=== PATIENT | female | born 1980 | race Caucasian/White ===

== ENCOUNTER 2025-02-14 15:36 | Emergency (ER) | payer SELFPAY ==
[2025-02-14 15:39] VITALS: BP 127/82; PULSE 122; TEMP 36.7; O2SAT 98; BMI 36.6
--- NOTE | 2025-02-14 15:57 | ED_ITS ---
Documented by User: Grabiel Avelar DO 02/15/25 08:55 HPI - General Adult 2 General: Chief complaint: General Medical Stated complaint: swelling all over Time Seen by Provider: 02/14/25 15:53 History of Present Illness: 44-year-old female presents emergency ro om complaining of hands and feet swelling over the last several days to a week. It is getting particularly worse the last 2 days she has bit of a sore throat complaining of difficulty moving her hands because of the swelling. She has a fair amount of arthritic complaints and takes NSAIDs regularly. No chest pain no shortness of breath at this time. Associated symptoms: Deny chest pain, dyspnea or rash Related Data Allergies Allergy/AdvReac Type Severity Reaction Status Date / Time No Known Allergies Allergy Verified 02/14/25 15:43 Review of Systems 2 Const: Denies: fever(s) or chills Card: Denies: chest pain Resp: Denies: dyspnea GI: Denies: abdominal pain : Denies: dysuria, urinary frequency or urinary urgency Musc: Denies: neck pain or back pain Skin/Breast: Denies: rash Physical Exam 2 Const: GENERAL APPEARANCE: cooperative ORIENTATION/CONSCIOUSNESS: Yes awake, Yes oriented to person, Yes oriented to place and Yes oriented to time HENMT: COMMON NORMALS: normocephalic, atraumatic and hearing grossly normal bilaterally HEAD & SCALP: normocephalic and atraumatic Resp: COMMON NORMALS: normal respiratory effort, No retractions, No use of accessory muscles and clear to auscultation bilaterally AUSCULTATION: clear to auscultation bilaterally Cardio: COMMON NORMALS: regular rate, regular rhythm and No murmurs present (Cardio) RATE: regular rate RHYTHM: regular rhythm GI: COMMON NORMALS: Soft to palpation and No hepatosplenomegaly present A USCULTATION: Yes normoactive bowel sounds PALPATION: Yes Soft to palpation, No Tenderness to palpation present (GI), No Guarding due to palpation present (GI) and Yes No hepatosplenomegaly present Extremity: COMMON NORMALS: normal to inspection, capillary refill normal, no clubbing, cyanosis or edema, no calf tenderness and no pedal edema Neuro: SENSORIUM/ORIENTATION: Yes oriented to person, Yes oriented to place and Yes oriented to time Skin: COMMON NORMALS: no rashes or lesions noted GENERAL SKIN EXAM: no rashes or lesions noted Course 2 Vital Signs: Vital signs: Vital Signs Temperature 98.0 F 02/14/25 15:39 Pulse Rate 104 H 02/14/25 19:42 Respiratory Rate 16 02/14/25 19:42 Blood Pressure 130/90 02/14/25 19:42 Pulse Oximetry 100 02/14/25 19:42 Oxygen Delivery Me thod Room Air 02/14/25 18:00 MDM - General Adult Medical Decision Making Care signed out to Dr. Olivera at change of shift. See final notes for diagnosis and disposition. Patient signed out to me by previous emergency physician pending labs. When I speak with her, she is most concerned that her swelling might be due to congestive heart failure as she has a friend who is suffering from the same etiology. I do not suspect this is the case that she has no orthopnea or dyspnea on exertion. She has mild swelling of the bilateral hands and feet and left knee though she states she has chronic knee pain and has been told she needs to have that knee replaced by an orthopedic surgeon. She also admits to using a glass washer all day and she thinks that may be the hand swelling and pain could be from that. Regardless, I do not suspect infectious etiology to the swelling or any other emergent process warranting further workup. She will be discharged home in stable condition and will use [id number] medications for pain and she will follow-up with orthopedics to see whether her knee truly requires replacement in the near future. Lab Data 02/14/25 17:36 02/14/25 17:36 Radiology Impressions Chest X-Ray 02/14/25 17:11 IMPRESSION: No acute cardiopulmonary process. Laboratory Results WBC 11.93 10^3/uL (3.29-11.43) H 02/14/25 17:36 RBC 4.18 10^6/uL (3.85-5.65) 02/14/25 17:36 Hgb 10.70 g/dL (11.27-16.99) L 02/14/25 17:36 Hct 34.8 % (36-47) L 02/14/25 17:36 MCV 83.3 fl (85-98) L 02/14/25 17:36 MCH 25.6 pg (27-33) L 02/14/25 17:36 MCHC 30.7 g/dL (30-55) 02/14/25 17:36 RDW 17.2 % (12.1-15.1) H 02/14/25 17:36 Plt Count 484 10^3/cmm (157-399) H 02/14/25 17:36 MPV 10.7 fL (7.4-10.4) H 02/14/25 17:36 Neut % (Auto) 74.2 % 02/14/25 17:36 Lymph % (Auto) 14.9 % 02/14/25 17:36 Ramsey % (Auto) 7.0 % 02/14/25 17:36 Eos % (Auto) 2.8 % 02/14/25 17:36 Baso % (Auto) 0.8 % 02/14/25 17:36 Neut # (Auto) 8.84 10^3/uL (1.8-7.7) H 02/14/25 17:36 Lymph # (Auto) 1.8 10^3/uL (0.8-4.8) 02/14/25 17:36 Ramsey # (Auto) 0.8 10^3/uL (0.2-0.9) 02/14/25 17:36 Eos # (Auto) 0.3 10^3/uL (0.0-0.8) 02/14/25 17:36 Baso # (Auto) 0.1 10^3/uL (0.0-0.1) 02/14/25 17:36 Nucleated RBC % (auto) 0 % 02/14/25 17:36 Nucleated RBCs # 0.0 /100WBC 02/14/25 17:36 Sodium 133 mmol/L (136-145) L 02/14/25 17:36 Potassium 3.6 mmol/L (3.5-5.1) 02/14/25 17:36 Chloride 95 mmol/L (98-107) L 02/14/25 17:36 Carbon Dioxide 24 mmol/L (22-29) 02/14/25 17:36 Anion Gap 17.6 (5-19) 02/14/25 17:36 BUN 9 mg/dL (6-20) 02/14/25 17:36 Creatinine 0.7 mg/dL (0.5-0.9) 02/14/25 17:36 GFR Calculation 90.5 mL/min (90-130) 02/14/25 17:36 Glucose 105 mg/dL (65-115) 02/14/25 17:36 Calculated Osmolality 275 mOsm/kg (285-295) L 02/14/25 17:36 Calcium 9.1 mg/dL (8.5-10.5) 02/14/25 17:36 Total Bilirubin 0.2 mg/dL (0.15-1.2) 02/14/25 17:36 AST 17 U/L (0-32) 02/14/25 17:36 ALT 18 U/L (0-33) 02/14/25 17:36 Alkaline Phosphatase 116 U/L (35-105) H 02/14/25 17:36 NT-Pro-B Natriuret Pep < 36 pg/mL (0-125) 02/14/25 17:36 Total Protein 8.2 g/dL (6.6-8.7) 02/14/25 17:36 Albumin 4.0 g/dL (3.5-5.2) 02/14/25 17:36 Globulin 4.2 g/dL (1.3-4.6) 02/14/25 17:36 Urine Color Yellow (Yellow) 02/14/25 18: Urine Appearance Clear (CLEAR) 02/14/25 18: Urine pH 5.5 (5-7) 02/14/25 18:29 Ur Specific Mcdermott 1.010 (1.005-1.030) 02/14/25 18:29 Urine Protein Negative (Negative) 02/14/25 18: Urine Glucose (UA) Negative (Normal) 02/14/25 18: Urine Ketones Negative (Negative) 02/14/25 18: Urine Blood Negative (Negative) 02/14/25 18:29 Urine Nitrate Negative (Negative) 02/14/25 18: Urine Bilirubin Negative (Negative) 02/14/25 18: Urine Urobilinogen 1.0 mg/dL (Negative) 02/14/25 18:29 Ur Leukocyte Esterase Negative (Negative) 02/14/25 18:29 Urine RBC 0-2 /hpf (0-2) 02/14/25 18:29 Urine WBC 0-5 /hpf (0-5) 02/14/25 18:29 Ur Squamous Epith Cells 0-5 /hpf (0-5) 02/14/25 18:29 Amorphous Sediment Not Reportable 02/14/25 18:29 Urine Bacteria Trace /hpf (NONE) 02/14/25 18:29 Hyaline Casts 0.40 /lpf 02/14/25 18:29 Group A Strep Rapid Negative (Negative) 02/14/25 17:22 Discharge Plan Discharge Patient Disposition: Home Clinical Impression: Joint ache, Acute sore throat Condition: Stable Discharge Orders: Discharge ED (Routine); Ordered 02/14/25 Ordered By: Aubrey Olivera Discharge Diet: Advance as tolerated Discharge Activity: Increase activity as tolerated Patient Instructions: Pharyngitis (ED) Activity Restrictions/Additional Instructions: As we discussed, it appears you are suffering from a viral illness causing sore throat and aches of various joints. This should all get better with time without need for any specific invention. Please take ibuprofen and Tylenol and stay well-hydrated. You do not appear to have congestive heart failure causing your swelling. Print Language: Citizen [place] Sign Out Sign Out Data: Patient Sign Out occurred on 02/14/25 at 19:29. Patient's care was discussed, and care was transferred from Grabiel Avelar DO to Aubrey Olivera MD. Coding Level of Care Code ED Microfiche Camera Operator for Chg Fwd Documented by User: Aubrey Olivera MD 02/15/25 07:14 HPI - General Adult 2 General: Chief complaint: General Medical Stated complaint: swelling all over Time Seen by Provider: 02/14/25 15:53 Related Data Allergies Allergy/AdvReac Type Severity Reaction Status Date / Time No Known Allergies Allergy Verified 02/14/25 15:43 Course 2 Vital Signs: Vital signs: Vital Signs Temperature 98.0 F 02/14/25 15:39 Pulse Rate 104 H 02/14/25 19:42 Respiratory Rate 16 02/14/25 19:42 Blood Pressure 130/90 02/14/25 19:42 Pulse Oximetry 100 02/14/25 19:42 Oxygen Delivery Me thod Room Air 02/14/25 18:00 MDM - General Adult Medical Decision Making Patient signed out to me by previous emergency physician pending labs. When I speak with her, she is most concerned that her swelling might be due to congestive heart failure as she has a friend who is suffering from the same etiology. I do not suspect this is the case that she has no orthopnea or dyspnea on exertion. She has mild swelling of the bilateral hands and feet and left knee though she states she has chronic knee pain and has been told she needs to have that knee replaced by an orthopedic surgeon. She also admits to using a glass washer all day and she thinks that may be the hand swelling and pain could be from that. Regardless, I do not suspect infectious etiology to the swelling or any other emergent process warranting further workup. She will be discharged home in stable condition and will use [id number] medications for pain and she will follow-up with orthopedics to see whether her knee truly requires replacement in the near future. Lab Data 02/14/25 17:36 02/14/25 17:36 Radiology Impressions Chest X-Ray 02/14/25 17:11 IMPRESSION: No acute cardiopulmonary process. Laboratory Results WBC 11.93 10^3/uL (3.29-11.43) H 02/14/25 17:36 RBC 4.18 10^6/uL (3.85-5.65) 02/14/25 17:36 Hgb 10.70 g/dL (11.27-16.99) L 02/14/25 17:36 Hct 34.8 % (36-47) L 02/14/25 17:36 MCV 83.3 fl (85-98) L 02/14/25 17:36 MCH 25.6 pg (27-33) L 02/14/25 17:36 MCHC 30.7 g/dL (30-55) 02/14/25 17:36 RDW 17.2 % (12.1-15.1) H 02/14/25 17:36 Plt Count 484 10^3/cmm (157-399) H 02/14/25 17:36 MPV 10.7 fL (7.4-10.4) H 02/14/25 17:36 Neut % (Auto) 74.2 % 02/14/25 17:36 Lymph % (Auto) 14.9 % 02/14/25 17:36 Ramsey % (Auto) 7.0 % 02/14/25 17:36 Eos % (Auto) 2.8 % 02/14/25 17:36 Baso % (Auto) 0.8 % 02/14/25 17:36 Neut # (Auto) 8.84 10^3/uL (1.8-7.7) H 02/14/25 17:36 Lymph # (Auto) 1.8 10^3/uL (0.8-4.8) 02/14/25 17:36 Ramsey # (Auto) 0.8 10^3/uL (0.2-0.9) 02/14/25 17:36 Eos # (Auto) 0.3 10^3/uL (0.0-0.8) 02/14/25 17:36 Baso # (Auto) 0.1 10^3/uL (0.0-0.1) 02/14/25 17:36 Nucleated RBC % (auto) 0 % 02/14/25 17:36 Nucleated RBCs # 0.0 /100WBC 02/14/25 17:36 Sodium 133 mmol/L (136-145) L 02/14/25 17:36 Potassium 3.6 mmol/L (3.5-5.1) 02/14/25 17:36 Chloride 95 mmol/L (98-107) L 02/14/25 17:36 Carbon Dioxide 24 mmol/L (22-29) 02/14/25 17:36 Anion Gap 17.6 (5-19) 02/14/25 17:36 BUN 9 mg/dL (6-20) 02/14/25 17:36 Creatinine 0.7 mg/dL (0.5-0.9) 02/14/25 17:36 GFR Calculation 90.5 mL/min (90-130) 02/14/25 17:36 Glucose 105 mg/dL (65-115) 02/14/25 17:36 Calculated Osmolality 275 mOsm/kg (285-295) L 02/14/25 17:36 Calcium 9.1 mg/dL (8.5-10.5) 02/14/25 17:36 Total Bilirubin 0.2 mg/dL (0.15-1.2) 02/14/25 17:36 AST 17 U/L (0-32) 02/14/25 17:36 ALT 18 U/L (0-33) 02/14/25 17:36 Alkaline Phosphatase 116 U/L (35-105) H 02/14/25 17:36 NT-Pro-B Natriuret Pep < 36 pg/mL (0-125) 02/14/25 17:36 Total Protein 8.2 g/dL (6.6-8.7) 02/14/25 17:36 Albumin 4.0 g/dL (3.5-5.2) 02/14/25 17:36 Globulin 4.2 g/dL (1.3-4.6) 02/14/25 17:36 Urine Color Yellow (Yellow) 02/14/25 18:29 Urine Appearance Clear (CLEAR) 02/14/25 18: Urine pH 5.5 (5-7) 02/14/25 18:29 Ur Specific Mcdermott 1.010 (1.005-1.030) 02/14/25 18:29 Urine Protein Negative (Negative) 02/14/25 18:29 Urine Glucose (UA) Negative (Normal) 02/14/25 18:29 Urine Ketones Negative (Negative) 02/14/25 18: Urine Blood Negative (Negative) 02/14/25 18: Urine Nitrate Negative (Negative) 02/14/25 18: Urine Bilirubin Negative (Negative) 02/14/25 18: Urine Urobilinogen 1.0 mg/dL (Negative) 02/14/25 18: Ur Leukocyte Esterase Negative (Negative) 02/14/25 18:29 Urine RBC 0-2 /hpf (0-2) 02/14/25 18:29 Urine WBC 0-5 /hpf (0-5) 02/14/25 18:29 Ur Squamous Epith Cells 0-5 /hpf (0-5) 02/14/25 18: Amorphous Sediment Not Reportable 02/14/25 18:29 Urine Bacteria Trace /hpf (NONE) 02/14/25 18: Hyaline Casts 0.40 /lpf 02/14/25 18:29 Group A Strep Rapid Negative (Negative) 02/14/25 17:22 All radiology interpretation(s) finalized by discharge Discharge Plan Discharge Patient Disposition: Home Clinical Impression: Joint ache, Acute sore throat Condition: Stable Discharge Orders: Discharge ED (Routine); Ordered 02/14/25 Ordered By: Aubrey Olivera Discharge Diet: Advance as tolerated Discharge Activity: Increase activity as tolerated Patient Instructions: Pharyngitis (ED) Activity Restrictions/Additional Instructions: As we discussed, it appears you are suffering from a viral illness causing sore throat and aches of various joints. This should all get better with time without need for any specific invention. Please take ibuprofen and Tylenol and stay well-hydrated. You do not appear to have congestive heart failure causing your swelling. Print Language: Citizen [place] Sign Out Sign Out Data: Patient Sign Out occurred on 02/14/25 at 19:29. Patient's care was discussed, and care was transferred from Grabiel Avelar DO to Aubrey Olivera MD. Coding Level of Care Code ED Microfiche Camera Operator for Arya Nagel
--- NOTE | 2025-02-14 17:11 | ECG_ITS ---
[facility]25[facility]14 Pat Name: Doris De La Cruz Department: Room: Gender: Female Director Of Trauma: : 1980 Requested By: Grabiel Wang Order Number: [id number] Reading MD: SUMI FLOR Measurements Intervals [place] Rate: 97 P: 61 UT: 161 QRS: 10 QRSD: 96 T: 44 QT: 354 QTc: 451 Interpretive Statements SINUS RHYTHM No previous ECG available for comparison Electronically Signed On 02-15-2025 22:49:15 CDT by SUMI FLOR [email or web address]
--- NOTE | 2025-02-14 17:11 | XRR_ITS ---
PROCEDURE INFORMATION: Exam: XR Chest Exam date and time: 02/14/2025 5:14 PM Age: 44 years old Clinical indication: Cough and dyspnea; Additional info: Dyspnea/cough TECHNIQUE: Imaging protocol: Radiologic exam of the chest. Views: 1 view. COMPARISON: No relevant prior studies available. FINDINGS: Lungs: Low lung volumes. Mild bibasilar opacities favor atelectasis. No focal consolidation. Pleural spaces: Unremarkable. No pleural effusion. No pneumothorax. Heart/Mediastinum: Unremarkable. No cardiomegaly. Bones/joints: Unremarkable. XR/XR chest 1V portable [id number] IMPRESSION: No acute cardiopulmonary process.
[2025-02-14 17:51] LABS: Basophils # 0.1 10^3/uL (0.0-0.1); Basophils % 0.8 %; Eosinophils # 0.3 10^3/uL (0.0-0.8); Eosinophils % 2.8 %; Hematocrit 34.8 % (36-47); Lymphocytes # 1.8 10^3/uL (0.8-4.8); Lymphocytes % 14.9 %; Mean Corpuscular HGB Conc 30.7 g/dL (30-55); Mean Corpuscular Hemoglobin 25.6 pg (27-33); Mean Corpuscular Volume 83.3 fl (85-98); Mean Platelet Volume 10.7 fL (7.4-10.4); Monocytes # 0.8 10^3/uL (0.2-0.9); Neutrophils # 8.84 10^3/uL (1.8-7.7); Neutrophils % 74.2 %; Nucleated Red Blood Cells % 0 %; Platelet Count 484 10^3/cmm (157-399); Red Blood Count 4.18 10^6/uL (3.85-5.65); Red Cell Distribution Width 17.2 % (12.1-15.1); White Blood Count 11.93 10^3/uL (3.29-11.43)
[2025-02-14 18:00] VITALS: BP 138/97; PULSE 104; O2SAT 97
[2025-02-14 18:00] LABS: Rapid Strep A Test Negative (Negative)
[2025-02-14 18:46] LABS: Alanine Aminotransferase 18 U/L (0-33); Alkaline Phosphatase 116 U/L (35-105); Aspartate Amino Transferase 17 U/L (0-32); Blood Urea Nitrogen 9 mg/dL (6-20); Calcium 9.1 mg/dL (8.5-10.5); Carbon Dioxide 24 mmol/L (22-29); Chloride 95 mmol/L (98-107); Creatinine Clr Calc Pharmacy 118.7474; Globulin 4.2 g/dL (1.3-4.6); Glomerular Filtration Rate 90.5 mL/min (90-130); Glucose 105 mg/dL (65-115); NT Pro B Type Natriuretic Pept < 36 pg/mL (0-125); Osmolality Calculated 275 mOsm/kg (285-295); Sodium 133 mmol/L (136-145); Total Bilirubin 0.2 mg/dL (0.15-1.2); Total Protein 8.2 g/dL (6.6-8.7)
[2025-02-14 18:49] LABS: Anion Gap 17.6 (5-19); Potassium 3.6 mmol/L (3.5-5.1)
[2025-02-14 18:50] LABS: Bilirubin Urine Negative (Negative); Blood Urine Negative (Negative); Glucose Urine UA Negative (Normal); Ketones Urine Negative (Negative); Leukocyte Esterase Urine Negative (Negative); Nitrate Urine Negative (Negative); Protein Urine Negative (Negative); Urine Appearance Clear (CLEAR); Urine Color Yellow (Yellow); pH Urine 5.5 (5-7)
[2025-02-14 18:55] LABS: Add Urine Microscopic? YES; Bacteria Urine Trace /hpf; RBC Urine 0-2 /hpf (0-2); Squamous Epithelial Cell Urine 0-5 /hpf (0-5); WBC Urine 0-5 /hpf (0-5)
[2025-02-14 19:42] VITALS: BP 130/90; PULSE 104; RESP 16; O2SAT 100
== END 2025-02-14 19:43 | disposition home or self-care (01) ==
PROVIDERS: Family Medicine; Emergency Provider Student in an Organized Health Care Education/Training Program
DX: J02.9 Acute pharyngitis, unspecified (principal); M25.50 Pain in unspecified joint; R06.00 Dyspnea, unspecified
CPT/HCPCS: 36415; 71045; 80053; 81001; 83880; 85025; 87081; 87880; 93005; 99285